=== PATIENT | female | born 1975 | race Caucasian/White ===

== ENCOUNTER 2019-07-27 11:00 | Inpatient (IN) ==
[2019-07-27] MEDS ORDERED: PHENOBARBITAL IV PRN (12:55)
[2019-07-27] MEDS ORDERED: SENOKOT PO PRN (12:55)
[2019-07-27] MEDS ORDERED: D5W 1,000 ML IV PRN (12:55)
[2019-07-27] MEDS ORDERED: ZOFRAN IV PRN (12:55)
[2019-07-27] MEDS ORDERED: MOTRIN PO PRN (12:55)
[2019-07-27] MEDS ORDERED: IMODIUM PO PRN (12:55)
[2019-07-27] MEDS ORDERED: MAALOX PLUS LIQUID PO PRN (12:55)
[2019-07-27] MEDS ORDERED: BENTYL PO PRN (12:55)
[2019-07-27] MEDS ORDERED: SALINE LOCK IV FLUID XX ONE (12:55)
[2019-07-27] MEDS ORDERED: ZOFRAN ODT PO PRN (12:55)
[2019-07-27] MEDS ORDERED: DESYREL PO PRN (12:55)
[2019-07-27] MEDS ORDERED: TYLENOL PO PRN (12:55)
[2019-07-27] MEDS ORDERED: DULCOLAX PR PRN (12:55)
[2019-07-27] MEDS ORDERED: TUBERSOL ID ONE (12:55)
[2019-07-27] MEDS ORDERED: NICODERM PATCH TD PRN (12:55)
[2019-07-27] MEDS ORDERED: M.V.I.-12 10 ML, FOLIC ACID 1 MG, MAGNESIUM SULFATE 1 GM, THIAMINE 100 MG in NS 1,000 ML IV ONE (14:00)
[2019-07-27] MEDS: LIBRIUM PO SCH ×2 (14:33→21:11)
[2019-07-27 15:08] LABS: HEMATOCRIT 44.6 % (37.0-47.0); HEMOGLOBIN 14.8 g/dL (12.0-16.0); MCH 34.1 PG (27-31); MCHC 33.2 g/dL (33-37); MCV 102.8 FL (81-99); MPV 11.1 FL (7.4-10.4); RBC 4.34 XMIL (4.2-5.4); RDW 14.4 % (11.5-14.5); WBC 7.97 X1000 (4.8-10.8)
[2019-07-27 15:24] LABS: INR 0.95; PROTIME 13.1 Seconds (11.0-16.0)
[2019-07-27 15:46] LABS: AGAP 12; ALBUMIN 3.9 g/dL (3.5-5.0); ALKALINE PHOSPHATASE 99 U/L (32-104); BUN 12 mg/dL (8-22); CALCIUM 9.3 mg/dL (8.8-10.2); CHLORIDE 102 mmol/L (98-107); COSMO 285; CREATININE 0.7 mg/dL (0.5-0.9); ESTIMATED GFR > 60; GLUCOSE 110 mg/dL (70-104); GOT 101 U/L (10-30); GPT 41 U/L (10-36); POTASSIUM 3.4 mmol/L (3.5-5.1); SODIUM 143 mmol/L (136-145); TCO2 29 mmol/L (25-35); TOTAL PROTEIN 7.1 g/dL (6.3-8.3)
[2019-07-27 16:27] LABS: AMYLASE 64 U/L (20-200); LIPASE 102 U/L (13-60)
[2019-07-27] MEDS ORDERED: PNEUMOVAX 23 IM ONE (16:30)
[2019-07-27] MEDS: ATARAX PO PRN (17:25)
[2019-07-27] MEDS ORDERED: FLU VACCINE IM ONE (18:16)
[2019-07-27 20:56] LABS: URINE SOURCE CLEAN CATCH
[2019-07-27 21:05] LABS: BILIRUBIN URINE NEGATIVE (NEGATIVE); BLOOD URINE NEGATIVE (NEGATIVE); COLOR YELLOW; GLUCOSE URINE NEGATIVE (NEGATIVE); KETONE URINE NEGATIVE (NEGATIVE); LEUKOCYTES URINE NEGATIVE (NEGATIVE); NITRITE URINE NEGATIVE (NEGATIVE); PH URINE 6.5; PROTEIN URINE NEGATIVE (NEGATIVE); SP GRAVITY URINE 1.014; TURBIDITY URINE HAZY (CLEAR); UROBILINOGEN URINE NORMAL (NORMAL)
[2019-07-27 21:06] LABS: UR EPITHELIAL CELLS <10 /HPF (<10); URINE BACTERIA NEGATIVE /HPF; URINE RBC <10 /HPF (<10); URINE WBC <10 /HPF (<10)
[2019-07-27 21:09] LABS: UR AMPHETAMINES QUAL NONE DETECTED (NONE DETECT); UR BARBITUATES QUAL NONE DETECTED (NONE DETECT); UR BENZODIAZEPIN QUAL PRESUMPTIVE POSITIVE (NONE DETECT); UR CANNABINOIDS QUAL NONE DETECTED (NONE DETECT); UR COCAINE QUAL NONE DETECTED (NONE DETECT); UR METHADONE QUAL NONE DETECTED (NONE DETECT); UR METHAMPHETAMINE QUAL NONE DETECTED (NONE DETECT); UR OPIATES QUAL NONE DETECTED (NONE DETECT); UR OXYCODONE QUAL NONE DETECTED (NONE DETECT); UR PCP QUAL NONE DETECTED (NONE DETECT); UR PROPOXYPHENE QUAL NONE DETECTED (NONE DETECT); UR TCA QUAL NONE DETECTED (NONE DETECT)
[2019-07-27] MEDS: SEROQUEL PO PRN (22:11)
[2019-07-27] MEDS: ROBAXIN PO PRN (22:11)
[2019-07-28] MEDS: LIBRIUM PO SCH ×4 (02:00→18:23)
[2019-07-28] MEDS: PROTONIX PO SCH (06:11)
[2019-07-28] MEDS: THERA M PLUS PO SCH (09:09)
[2019-07-28] MEDS: VITAMIN B-1 PO SCH (09:09)
[2019-07-28] MEDS: FOLIC ACID PO SCH (09:09)
[2019-07-28] MEDS: ATARAX PO PRN (11:24)
[2019-07-28] MEDS: TOPROL XL PO SCH (21:19)
[2019-07-28] MEDS: SEROQUEL PO PRN (21:23)
[2019-07-28] MEDS: ROBAXIN PO PRN (21:23)
[2019-07-29] MEDS: LIBRIUM PO SCH ×4 (00:24→20:58)
--- NOTE | 2019-07-29 03:26 | PROGRESS NOTE ---
DATE: 07/28/2019 SUBJECTIVE: Patient notes that she is feeling a little bit better, less myalgias, less paresthesias. Tremors are improving although still present. Still weak. PHYSICAL EXAMINATION: Vital Signs: Reviewed. Temperature 98 degrees, pulse 85, respiratory rate 18, BP 129/73. General: Patient is pleasant. She is in no respiratory distress lying in the bed watching television. HEENT: Normocephalic. Neck: Supple. Cardiovascular: Regular rate. Chest: Clear. Abdomen: Soft. Extremities: Moves all extremities. Neurologic: No changes. ASSESSMENT: 1. Nausea, vomiting. 2. Abdominal pain. 3. Tremors. 4. Myalgias. 5. Paresthesias. 6. Paroxysmal sweating. 7. Alcohol abuse, withdrawal and stabilization. PLAN: We will continue patient in the hospital. Continue to wean Librium. Continue counseling. Further orders as needed. cc: Davide Kauffman MD
[2019-07-29] MEDS: PROTONIX PO SCH (06:41)
[2019-07-29] MEDS: FOLIC ACID PO SCH (11:48)
[2019-07-29] MEDS: VITAMIN B-1 PO SCH (11:48)
[2019-07-29] MEDS: TOPROL XL PO SCH ×2 (11:48→20:58)
[2019-07-29] MEDS: THERA M PLUS PO SCH (11:48)
[2019-07-29] MEDS: TAPAZOLE PO SCH (12:07)
[2019-07-29] MEDS: ATARAX PO PRN (18:37)
[2019-07-29] MEDS: ROBAXIN PO PRN (18:42)
--- NOTE | 2019-07-29 19:45 | PROGRESS NOTE ---
DATE: 07/29/2019 SUBJECTIVE: Patient notes that she is feeling better, having less muscle aches, less sweating. Denies any fevers or chills. PHYSICAL EXAMINATION: Vital Signs: Reviewed. Temperature 98.2, pulse 76, respiratory rate 18, BP 141/92. General: Patient is pleasant, currently in no respiratory distress. HEENT: Normocephalic. Neck: Supple. Cardiovascular: Regular rate. Chest: Clear. Abdomen: Soft. Extremities: Moves all extremities. ASSESSMENT: 1. Nausea, vomiting. 2. Abdominal pain. 3. Paresthesias. 4. Paroxysmal sweating. 5. Alcohol abuse withdrawal and stabilization. PLAN: We are going to continue patient in the hospital. Continue to wean Librium. Continue counseling. Hopefully home tomorrow. cc: Davide Kauffman MD
[2019-07-29] MEDS: SEROQUEL PO PRN (21:03)
[2019-07-30] MEDS: ROBAXIN PO PRN (05:38)
[2019-07-30] MEDS: PROTONIX PO SCH ×2 (05:39→07:08)
[2019-07-30] MEDS: LIBRIUM PO SCH (05:39)
[2019-07-30 09:16] VITALS: BP 137/92
[2019-07-30] MEDS: THERA M PLUS PO SCH (10:21)
[2019-07-30] MEDS: TAPAZOLE PO SCH (10:21)
[2019-07-30] MEDS: FOLIC ACID PO SCH (10:21)
[2019-07-30] MEDS: VITAMIN B-1 PO SCH (10:21)
[2019-07-30] MEDS: TOPROL XL PO SCH (10:21)
--- NOTE | 2019-07-31 05:24 | DISCHARGE SUMMARY ---
ADMISSION DATE: 07/27/2019 DISCHARGE DATE: 07/30/2019 DISCHARGE DIAGNOSIS: 1. Nausea, vomiting. 2. Abdominal pain. 3. Myalgias. 4. Paresthesias. 5. Paroxysmal sweating. 6. Alcohol abuse, withdrawal and stabilization. 7. Hypertension. 8. Hyperthyroidism. CONSULTATIONS: None. PROCEDURES: None. BRIEF HOSPITAL COURSE: The patient is a 44-year-old very pleasant female who presented to the hospital secondary to nausea, vomiting, abdominal pain, myalgias, paresthesias, paroxysmal sweating. She was started on high dose Librium taper. She was counseled each day. Thankfully, on discharge she is awake, alert. She is in no distress. Overall, she is feeling better. DISPOSITION: Patient will be discharged home to follow up outpatient with treatment facility of choice. Discussed with her that she needs to change her thought process, that she needs life counseling, she needs a sponsor. We did start Vivitrol and discussed with her naltrexone if she is unable to get Vivitrol from home. cc: Davide Kauffman MD
--- NOTE | 2019-08-06 14:24 | HISTORY AND PHYSICAL ---
CHIEF COMPLAINT: Nausea and vomiting. HISTORY OF PRESENT ILLNESS: The patient is a 44-year-old female who presented to [facility] secondary to nausea, vomiting, abdominal pain, myalgias, paresthesias. Notes that she has been drinking heavily and has been unable to stop. SOCIAL HISTORY: The patient is single. She is unemployed. Lives at home in [place]. PAST MEDICAL HISTORY: Hyperthyroidism with nodules on her thyroid, hypertension, anemia, migraines, depression, anxiety, PTSD, supraventricular tachycardia, blackouts that are alcohol- related, seizures since childhood. MEDICATIONS: Librium 10 b.i.d., metoprolol 25 daily, Ativan every 8 hours p.r.n., Zofran, Celexa, Phenergan 25, methimazole 10 one-half daily. ALLERGIES: No known drug allergies. REVIEW OF SYSTEMS: CIWA score is 40 secondary to nausea, vomiting, frequent dry heaves, auditory and visual hallucinations, moderate tremors. She is having paroxysmal sweating, increased anxiety, agitation, unable sit still. She has severe headache, sensation of pins and needles in all her extremities. She has frequent nausea with anorexia. Denies any true headaches, blurred vision, change in vision. Denies any focalized numbness, tingling, weakness in her extremities. Denies dysuria, frequency, constipation, melena, hematochezia. Denies skin rashes, weight loss, or weight gain. SUBSTANCE ABUSE HISTORY: The patient has not been in treatment in the past, although she has tried naltrexone that did help with her cravings, but did not help with her withdrawals. Alcohol has caused legal, relationship, and health problems. She started drinking at 18. Currently drinks a fifth of a gallon of alcohol daily for the past 2 years. Started Xanax at 36. Started Didrex at 22. Notes that she was prescribed it and then started abusing it. Started opiates at 31. Was on methadone for 2 years until she went to alf, where she stops. Started cigarettes at age 13, currently smokes a pack a day. FAMILY HISTORY: Noncontributory. PHYSICAL EXAMINATION: VITAL SIGNS: Reviewed and stable. GENERAL: The patient is awake, alert. She is in no current respiratory distress. She is very pleasant to talk with. HEENT: Normocephalic. NECK: Supple. CARDIOVASCULAR: Regular rate. CHEST: Clear. ABDOMEN: Soft. EXTREMITIES: Moves all extremities. NEUROLOGIC: No focal neurological changes. SKIN: Warm and dry. No rashes. ASSESSMENT: 1. Nausea and vomiting. 2. Abdominal pain. 3. Myalgias. 4. Paresthesias. 5. Paroxysmal sweating. 6. Alcohol abuse, withdrawal, and stabilization. 7. Hyperthyroidism. 8. Hypertension. 9. Anemia. 10. Migraines. PLAN: Will continue the patient in the hospital, place her on high-dose Librium taper, begin counseling. Will continue her home medications and will follow. cc: Davide Kauffman MD
== END 2019-07-30 12:10 | disposition home or self-care (01) | DRG 897 ==
LOC: P.DIRADM 12:27 → P.MEDSURG 13:26
PROVIDERS: ADMIT Family Medicine; ATTEND Family Medicine